=== PATIENT | male | born 1995 | race Caucasian/White ===

== ENCOUNTER 2018-07-20 22:12 | Emergency (ER) | payer OTHER, SELFPAY ==
[2018-07-20 22:46] VITALS: BP 156/93; PULSE 122; RESP 22; TEMP 37.2; O2SAT 96; BMI 24.8
--- NOTE | 2018-07-20 23:21 | ED.ABDPAIN ---
HPI - Abdominal Pain General Chief Complaint: Abdominal Pain Stated Complaint: states kidney stones Time Seen by Provider: 07/20/18 23:19 Source: patient Mode of arrival: ambulatory Limitations: no limitations History of Present Illness HPI narrative: 22-year-old male here for evaluation of what he thinks is right-sided kidney stone. Several years ago he had a right-sided stone. He states that it was 4 mm however was obstructing. He states that it was removed by the scope. Has never had any problems since then. Approximately 2 hours prior to coming here to the emergency department a sudden onset of right-sided flank pain radiating around to the front. He states that it feels like his prior kidney stone. Has not tried anything for symptoms prior to arrival. Related Data Home Medications Medication Instructions Recorded Confirmed amitriptyline 1 tab PO DAILY 07/20/18 07/20/18 cholecalciferol (vitamin D3) 400 unit PO DAILY 07/20/18 07/20/18 [Vitamin D3] dextroamphetamine-amphetamine 30 mg PO DAILY 07/20/18 07/20/18 [Adderall XR] lisinopril 1 tab PO DAILY 07/20/18 07/20/18 magnesium 250 mg PO DAILY 07/20/18 07/20/18 Previous Rx's Medication Instructions Recorded hydrocodone-acetaminophen [[place]] 1 tab PO Q4-6H PRN #10 tab 07/21/18 ondansetron HCl [Zofran] 4 mg PO Q6-8H PRN #14 tab 07/21/18 Allergies Allergy/AdvReac Type Severity Reaction Status Date / Time SNRI Allergy Uncoded 07/20/18 22:46 SSRI Allergy Uncoded 07/20/18 22:46 Review of Systems Constitutional Denies fever(s) Cardiovascular Denies chest pain and Denies dyspnea Respiratory Denies dyspnea Gastrointestinal Gastrointestinal: Reports abdominal pain Genitourinary Reports hematuria, Reports flank pain, Reports urinary frequency and Reports urinary hesitancy Integumentary/Breasts Denies rash Hematologic/Lymphatic Denies easy bleeding and Denies easy bruising PFSH Medical History Kidney stones (Acute) Social History Smoking Status: Never smoker Social History Smoking Status: Never smoker Exam Initial Vital Signs Initial Vital Signs: Vital Signs Temperature 98.9 F 07/20/18 22:46 Pulse Rate 122 H 07/20/18 22:46 Respiratory Rate 22 07/20/18 22:46 Blood Pressure 156/93 H 07/20/18 22:46 Pulse Oximetry 96 07/20/18 22:46 Const General: cooperative, well developed, well groomed and No acute distress Orientation: alert, awake and oriented x3 HENMT Head: normal to inspection and normocephalic Resp Effort & Inspection: normal respiratory effort Auscultation: clear to auscultation bilaterally Cardio Rate: tachycardic Rhythm: regular rhythm GI Inspection: non-distended Palpation: soft and No firm Skin Lesions: no lesions Rashes: no rashes Neuro General: alert, awake and oriented x3 Extrem General: normal to inspection and capillary refill normal Psych Appearance: grossly normal and well kempt Course Orders Ordered: ED Orders 07/20/18 23:05 Basic Metabolic Panel Stat Urinalysis and Microscopic Stat Discontinued Medications Acetaminophen (Tylenol) 975 mg PO NOW ONE Stop: 07/20/18 23:20 Last Admin: 07/20/18 23:35 Dose: 975 mg Hydrocodone Bitart/Acetaminophen (Vicodin Prepack) 1 bottle MISC SEEINSTR ONE Stop: 07/21/18 00:46 Last Admin: 07/21/18 00:50 Dose: 1 bottle Lidocaine HCl 6.1 ml/ Sodium (Chloride) 56.1 mls @ 336.6 mls/hr IV NOW ONE Stop: 07/20/18 23:20 Last Infusion: 07/21/18 00:37 Dose: 0 mls/hr Admin: 07/21/18 00:05 Dose: 336.6 mls/hr Ketorolac Tromethamine (Toradol) 30 mg IV NOW ONE Stop: 07/20/18 23:20 Last Admin: 07/20/18 23:35 Dose: 30 mg Ondansetron HCl (Zofran Odt Prepack) 1 bottle MISC SEEINSTR ONE Stop: 07/21/18 00:46 Last Admin: 07/21/18 00:50 Dose: 1 bottle Vital Signs - 8 hr 07/20/18 22:46 07/21/18 00:49 Temperature 98.9 F Pulse Rate 122 H 90 Respiratory Rate 22 20 Blood Pressure 156/93 H Blood Pressure [Right Arm] 131/80 Pulse Oximetry 96 100 MDM - Abdominal Pain Lab Data Attestation: I reviewed the patient's lab results. Result diagrams: 07/20/18 23:05 Lab Results 07/20/18 07/20/18 Range/Units 23:05 23:05 Sodium 142 (137-145) mmol/L Potassium 3.5 (3.4-5.1) mmol/L Chloride 103 (98-107) mmol/L Carbon Dioxide 26 (22-32) mmol/L BUN 18 (9-20) mg/dL Creatinine 1.30 H (0.66-1.25) mg/dL Estimated GFR > 60.0 (>60) mL/min BUN/Creatinine Ratio 13.8 (6-22) Glucose 79 (70-100) mg/dL Calcium 9.8 (8.4-10.2) mg/dL Urine Color Yellow Urine Appearance Slightly cloudy Urine pH 6.0 (4.5-8.0) Ur Specific [place] 1.025 (1.000-1.035) Urine Protein 2+ H (Negative) Urine Glucose (UA) Negative (Negative) g/dL Urine Ketones 1+ H (NEGATIVE) Urine Occult Blood 3+ H (Negative) Urine Nitrate Negative (Negative) Urine Bilirubin Negative (NEGATIVE) Urine Urobilinogen 0.2 (0.2) E.U./dL Ur Leukocyte Esterase Negative (NEGATIVE) Urine RBC >100/hpf (0-5/HPF) Urine WBC None seen (0-5/HPF) Urine Bacteria None seen (None) Ur Culture Indicated? Cult not indicated MDM Narrative Medical decision making narrative: No signs of a kidney infection, does have a slight bump in his creatinine. Patient states this feels like a prior kidney stone. Feels much better after the pain medication here in the emergency department. Had a long discussion with him and his regarding his symptoms. We will hold on a CT scan for now as this is most likely a kidney stone. Informed him that there is a possibility that the stone is large and does need to be removed however the this is not something that urology would do on an emergent basis. After discussion the patient agreed to hold on a CT scan. Will send home with nausea and pain medication. Will follow up with his primary provider. He expressed understanding and agreement with plan Discharge Plan Departure Patient Disposition: Home Clinical Impression: Renal colic on right side Discharge Date/Time: 07/21/18 01:00 Interventions: ED Discharge Assessment Last Done: 07/21/18 00:59 Instructions: DI for Kidney Stones Activity Restrictions/Additional Instructions: Take the medication as directed. When you return home contact her primary care doctor for a follow-up. Return to the emergency department for any new symptoms to include fevers, worsening pain, inability to urinate or any other concerning symptoms Prescriptions: New hydrocodone-acetaminophen [[place]] 5-325 mg tablet 1 tab PO Q4-6H PRN (Reason: pain) Qty: 10 RF: 0 ondansetron HCl [Zofran] 4 mg tablet 4 mg PO Q6-8H PRN (Reason: nausea and vomiting) Qty: 14 RF: 0 No Action amitriptyline 25 mg tablet 1 tab PO DAILY RF: 0 lisinopril 10 mg tablet 1 tab PO DAILY RF: 0 magnesium 250 mg Tablet 250 mg PO DAILY RF: 0 dextroamphetamine-amphetamine [Adderall XR] 30 mg capsule,extended release 24hr 30 mg PO DAILY RF: 0 cholecalciferol (vitamin D3) [Vitamin D3] 400 unit Tablet 400 unit PO DAILY RF: 0 Referrals: Katie Mcfarland PA-C [Primary Care Provider] -
[2018-07-20 23:23] LABS: Bacteria Urine None Seen; WBC Urine None Seen (0-5/HPF)
[2018-07-20 23:26] LABS: Bilirubin Urine UA NEGATIVE (NEGATIVE); Color Urine UA YELLOW; Glucose Urine UA NEGATIVE (Negative); Ketones Urine UA 1+ (NEGATIVE); Leukocyte Esterase Urine UA NEGATIVE (NEGATIVE); Nitrite Urine UA NEGATIVE (Negative); Occult Blood Urine UA 3+ (Negative); Protein Urine UA 2+ (Negative); Specific Gravity Urine UA 1.025 (1.000-1.035); Urobilinogen Urine UA 0.2 E.U./dL (0.2)
[2018-07-20 23:27] LABS: Appearance Urine UA Slightly Cloudy
[2018-07-20 23:30] LABS: BUN Creatinine Ratio 13.8 (6-22); Blood Urea Nitrogen 18 mg/dL (9-20); Calcium 9.8 mg/dL (8.4-10.2); Carbon Dioxide 26 mmol/L (22-32); Chloride 103 mmol/L (98-107); Estimated Glomerular Filt Rate > 60.0 mL/min (>60); Glucose 79 mg/dL (70-100); HEMOLYSIS < 15 (0-50); Potassium 3.5 mmol/L (3.4-5.1); Sodium 142 mmol/L (137-145)
[2018-07-20 23:34] LABS: Culture Indicated Urine Cult Not Indicated; RBC Urine >100/HPF (0-5/HPF)
[2018-07-20] MEDS: ACETAMINOPHEN 325 MG TABLET 975 MG PO (23:35)
[2018-07-20] MEDS: KETOROLAC 60 MG/2 ML VIAL 30 MG IV (23:35)
[2018-07-21] MEDS: LIDOCAINE 2% 6.1 ML in SODIUM CHLORIDE 0.9% 50 ML 336.6 ML IV (00:05)
[2018-07-21 00:49] VITALS: BP 131/80; PULSE 90; RESP 20; O2SAT 100
[2018-07-21] MEDS: ONDANSETRON 4 MG ODT PREPACK 1 BOTTLE MISC (00:50)
[2018-07-21] MEDS: HYDROCODONE/ACET 5/325 PREPACK 1 BOTTLE MISC (00:50)
== END 2018-07-21 01:00 | disposition home or self-care (01) ==
PROVIDERS: Emergency Provider Emergency Medicine; PCP Physician Assistant
DX: N23 Unspecified renal colic (principal)
CPT/HCPCS: 36415; 36591; 80048; 81001; 96365; 96375; 99283; 99284; J1885